=== PATIENT | male | born 1950 | race Caucasian/White ===

== ENCOUNTER 2024-01-25 18:55 | Emergency (ER) | payer OTHER, SELFPAY ==
[2024-01-25] VITALS (14 sets, daily range): BP systolic 112–150; BP diastolic 61–96; BMI 36.0
--- NOTE | 2024-01-25 19:31 | ED.GENMED ---
History of Present Illness
General
Chief Complaint: Dehydration Symptoms
Source: spouse
Time Seen by Provider: 01/25/24 19:12
History of Present Illness
History of Present Illness:
73-year-old male presents to the emergency room for evaluation of confusion and lethargy. 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 states this occurred as a complication of a neurosurgical procedure.
Patient can sometimes walk and help wash himself and assist in some activities but today he has not been getting out of bed. He seems generally weak more confused. He is sleeping more. He had 1 episode of diarrhea today. Patient unable to
provide any history due to aphasia.
Past History
Past History
ED Past Medical History: None
ED Past Surgical History: Other (She has had knee surgery in the past)
Social History
Tobacco: Non-smoker
Alcohol: Occasional
Drug: None
Personal:
Living: with family
Employment: Employed
Phy Exam
Physical Exam
Physical Exam:
General: Awake, Alert, nonverbal but does follow commands
Vitals: unremarkable
Head: Atraumatic
Eyes: Pupils equal, EOMI
Throat: Airway intact, no exudates, dry mucosa
Neck: Trachea midline
Lungs: Clear and equal b/l
Heart: Regular rate, no murmurs
Abd: Soft, Nontender, No pulsatile mass
Neuro: Right hemiparesis which is baseline.
Skin: Warm, dry, no rash
Extremities: pulses equal b/l, no edema
Course
Orders/Labs/Results
Orders:
Orders
01/25/24 19:29
Electrocardiogram (*1) Stat
Reason for Study: Other
Other Reason for Exam: neuro symptoms
CT Head W/o Iv Contrast Urgent
Comment:
Reason For Exam: confusion
Cardiac Monitoring- Treatment ONCE
EKG- Treatment ONCE
0.9% Sodium Chloride 500 ml [Nss] 500 ml IV BOLUS
01/25/24 19:30
CR Chest - 2 Views Urgent
Comment:
Reason For Exam: confusion
01/25/24 20:01
COVID-19 Antigen Urgent
Source: Nasal Swab
Complete Blood Count/With Diff Urgent
Comprehensive Metabolic Panel Urgent
01/25/24 20:02
Urinalysis Reflex To Culture Urgent
Date Specimen was Collected: 01/25/24
Time Specimen was Collected: 19:34
01/25/24 21:19
Protime/PTT Urgent
01/25/24 22:36
Ipratropium/Albuterol Sulfate [Duoneb] 3 ml .ROUTE .STK-MED ONE
Ipratropium/Albuterol Sulfate [Duoneb] 3 ml INH R NOW ONE
Abnormal Lab Results
01/25/24
20:01
WBC 13.3 H 10^3/uL
(4.8-10.8)
RBC 4.24 L 10^6/uL
(4.70-6.10)
Hct 37.4 L %
(39.0-52.0)
MPV 10.5 H fL
(7.4-10.4)
Absolute Neuts (auto) 10.7 H 10^3/uL
(1.4-6.5)
Absolute Monos (auto) 1.2 H 10^3/uL
(0.1-0.6)
Neutrophils % 80.4 H %
(42.2-75.2)
Lymphocytes % 9.4 L %
(20.5-51.1)
Glucose 105 H mg/dl
(70-99)
01/25/24 20:01
01/25/24 20:01
Vital Signs
Initial and Last Documented VS:
Initial Vital Signs
Pulse Resp BP Pulse Ox
88 21 118/96 98
01/25/24 19:00 01/25/24 19:00 01/25/24 19:00 01/25/24 19:00
Last Documented Vital Signs
Temp Pulse Resp BP Pulse Ox
98.8 F 78 16 132/89 96
01/25/24 19:06 01/25/24 22:30 01/25/24 22:30 01/25/24 22:30 01/25/24 22:30
MDM/Problems Addressed
Differential Diagnosis Includes:
Bleed, ischemic event, UTI, electrolyte abnormality, renal failure
MDM/Problems Addressed:
CT shows what appears to be a hemorrhagic mass with extension into the ventricle. Patient has had previous neurosurgical interventions at [facility]. Therefore patient will be transferred there for neurosurgical care. Discussed patient's presentation
with Dr. Ninfa Peralta. She accepts the patient in transfer. Patient has remained stable here pending transfer. He is sleepy but easily arousable but interacts. Prior to transfer the patient developed a little bit of what was thought to be
wheezing. On examination it sounds more upper airway in nature. His pulse ox is normal. He does not appear to be in any respiratory distress. DuoNeb administered. Patient stable for transfer.
Chronic conditions affecting care: HTN and Arrhythmia (Atrial fibrillation)
*Radiology
Radiology exam reviewed: radiology read reviewed
*Pulse Oximetry
Patient hypoxic: no
*EKG
Interpreted by ED Provider?: Yes
Interpretation: normal
Rate: normal
Rhythm: a-fib
Interval: normal interval
QRS Pattern: normal QRS
Ischemia: non-specific ST changes
*Prop Sawyer Interpretation
Rate: normal
Interpretation: abnormal
Heart Rate: 73
Rhythm: a-fib
*Critical Care Note
Total Time (30-74mins, 75-104mins- exclusive of procedures): 40 min
comment:
Critical care statement: A total of 40 minutes of critical care time was provided for this patient. This includes management of unstable vital signs, evaluation of the patient at bedside, reviewing the patient's pertinent medical records, discussion
with consultants, review of old EKGs and review of pertinent medical records. This time with separate from time utilized to perform the aforementioned documented procedures
Patient Management
Social determinants of health affecting care: Living situation
ED Attending Note
-
Portions of this chart may have been created with voice recognition software.� Occasional wrong word or��sound alike� substitutions may have occurred due to the inherent limitations of voice recognition software.
Discharge Plan
Departure
Patient Disposition: Acute Care Hospital
Date of Disposition: 01/25/24
Time of Disposition: 21:26
Condition: Serious
Discharge Problem:
Spontaneous intraparenchymal intracranial hemorrhage, acute
Prescriptions:
No Action
Daily Multivitamin 1 tablet
1 tab PO DAILY
duloxetine [Cymbalta] 30 mg Capsule,Delayed Release(Dr/Ec)
30 mg PO DAILY
gabapentin 600 mg
600 mg PO BID
ibuprofen 200 mg
200 mg PO PRN PRN (Reason: pain)
Rx Instructions:
take 1 to 2 tablets as needed
metoprolol tartrate 12.5 mg
12.5 mg PO BID
Referrals:
Allen Waller MD [Family Provider] -
Hospital Transfer
Other hospital: [facility]
I certify that the patient requires transfer: Yes
Discussed case with accepting physician: Fabian
Reason for transfer: specialties available
Interventions
Interventions:
*Risk Screen - Suicide Last Done: 01/25/24 19:06
*General Assessment Last Done: 01/25/24 19:06
*Neglect/Abuse Screening Last Done: 01/25/24 19:06
ED- Fall Risk Assessment Last Done: 01/25/24 19:06
*ED COVID-19 Vaccine History Last Done: 01/25/24 19:06
*Nursing Disposition Last Done: 01/25/24 22:56
ED- Cardiac Assessment Last Done: 01/25/24 20:58
ED- Neurological Assessment Last Done: 01/25/24 20:58
ED- Pulmonary Assessment Last Done: 01/25/24 20:58
Discharge Date and Time
Discharge Date/Time: 01/25/24 23:00
Print Language: VIET[place]
[2024-01-25] MEDS: NSS 500 IV (20:02)
[2024-01-25 20:11] LABS: % Basophils 0.3 % (0-2); % Eosinophils 0.5 % (0-6); % Immature Granulocytes 0.3 % (0-0.5); % Lymphocytes 9.4 % (20.5-51.1); % Monocytes 9.1 % (1.7-9.3); % Neutrophils 80.4 % (42.2-75.2); Absolute Eosinophils 0.1 10^3/uL (0-0.7); Absolute Lymphocytes 1.3 10^3/uL (1.2-3.4); Absolute Monocytes 1.2 10^3/uL (0.1-0.6); Absolute Neutrophils 10.7 10^3/uL (1.4-6.5); Hematocrit 37.4 % (39.0-52.0); Hemoglobin 13.1 g/dL (13.0-18.0); Mean Corpuscular Hgb 30.9 pg (27.0-31.0); Mean Corpuscular Volume 88.2 fL (80.0-94.0); Mean Platelet Volume 10.5 fL (7.4-10.4); Nucleated Red Blood Cells % 0 % (-); Platelet Count 233 10^3/uL (130-400); Red Blood Cell Count 4.24 10^6/uL (4.70-6.10); Red Cell Dist. Width 13.7 % (11.5-14.5); White Blood Cell Count 13.3 10^3/uL (4.8-10.8)
[2024-01-25 20:11] LABS: Urine Albumin Negative (Neg - Trace); Urine Bilirubin Negative (Negative); Urine Character Clear (Clear); Urine Color Yellow; Urine Glucose Negative (Negative); Urine Ketone Negative (Negative); Urine Leukocyte Negative (Negative); Urine Nitrite Negative (Negative); Urine Occult Blood Negative (Negative); Urine Specific Gravity 1.015 (<1.030); Urine Urobilinogen Negative (Neg - 1+)
[2024-01-25 20:22] LABS: ALT (SGPT) 20 U/L (0-50); AST (SGOT) 26 U/L (17-59); Alkaline Phosphatase 86 U/L (38-126); Blood Urea Nitrogen 19 mg/dl (9-20); Calcium 9.2 mg/dl (8.4-10.2); Carbon Dioxide 27 mmol/L (22-30); Chloride 101 mmol/L (98-107); Estimated Creatinine Clearance 110 ml/min; Glucose 105 mg/dl (70-99); Potassium 3.7 mmol/L (3.5-5.1); Sodium 137 mmol/L (135-145); Total Bilirubin 0.9 mg/dl (0.2-1.3); Total Protein 6.7 g/dl (6.3-8.2); eGFR > 60.00
[2024-01-25 20:26] LABS: COVID-19 Antigen Negative (Negative)
[2024-01-25 21:40] LABS: INR 1.15; PT 14.6 Sec (11.4-14.6)
[2024-01-25 21:41] LABS: APTT 27.1 Sec (23.4-35.0)
[2024-01-25] MEDS: DUONEB 3 ML INH (22:37)
== END 2024-01-25 23:00 | disposition short-term general hospital (02) ==
LOC: EMR 18:55
PROVIDERS: EMERGENCY PHYSICIAN Emergency Medicine; FAMILY PHYSICIAN Internal Medicine; OTHER PHYSICIAN Internal Medicine Cardiovascular Disease
DX: I62.9 Nontraumatic intracranial hemorrhage, unspecified (principal); R53.1 Weakness; R47.01 Aphasia; R41.0 Disorientation, unspecified; R53.83 Other fatigue; R19.7 Diarrhea, unspecified; Z11.52 Encounter for screening for COVID-19; I69.351 Hemiplegia and hemiparesis following cerebral infarction affecting right dominant side; I10 Essential (primary) hypertension; I48.91 Unspecified atrial fibrillation
CPT/HCPCS: 99291; 94640; 70450; 71046; 80053; 81003; 85025; 85610; 85730; 87811; 93005